=== PATIENT | male | born 1955 | race Caucasian/White ===

== ENCOUNTER 2018-12-10 21:24 | Emergency (ER) | payer OTHER ==
[~2018-12-10] VITALS: Ht 167.6 cm; Wt 77.3 kg
[~2018-12-10 21:24] MED LIST: ACYC800T PO; ACYC800T5 PO; LISI-313 PO; NPH,100V SC; PRED20TA PO
[2018-12-10 21:50] VITALS: Ht 167.6 cm; Wt 77.3 kg
[2018-12-11 03:08] VITALS: BP 122/78; PULSE 72; RESP 16
== END 2018-12-11 03:09 | disposition home or self-care (01) ==
LOC: E/R 21:24
DX: G51.0 Bell's palsy (principal); I10 Essential (primary) hypertension; E11.9 Type 2 diabetes mellitus without complications; Z79.4 Long term (current) use of insulin
CPT/HCPCS: 70450; 93005; Z7502